=== PATIENT | female | born 1940 | race Caucasian/White ===

== ENCOUNTER → 2016-12-22 | Outpatient (CLI) | payer MEDICARE, BC ==
[~2016-12-22] MED LIST: ASPIRIN E.C. 8181 MG PO; CARVEDILOL; DITROPAN 5MG TAB5 MG; HCTZ; HYDROCODON-ACET15 ML; LISINOPRIL5 MG; NORVASC 10MG10 MG; PRAVASTATIN SOD10 MG; TYLENOL 325MG325 MG; ULTRAM50 M1
== END ==
LOC: RAD 11:11
DX: M54.40 Lumbago with sciatica, unspecified side (principal); G89.29 Other chronic pain; M51.34 Other intervertebral disc degeneration, thoracic region; M43.16 Spondylolisthesis, lumbar region

== ENCOUNTER → 2016-12-31 | Outpatient (CLI) | payer MEDICARE, BC | LOC: MAMMO 09:04 | DX: Z12.31 Encounter for screening mammogram for malignant neoplasm of breast (principal) | CPT/HCPCS: G0202 ==

== ENCOUNTER → 2017-04-17 | Outpatient (CLI) | payer MEDICARE, BC ==
[2015-07-14 18:46] VITALS: BP 173/78
== END ==
LOC: LAB 13:01
DX: I10 Essential (primary) hypertension (principal); R42 Dizziness and giddiness

== ENCOUNTER → 2017-04-27 | Day surgery (SDC) | payer MEDICARE, BC ==
[2015-07-14 18:46] VITALS: BP 173/78
== END ==
LOC: MSO 08:38
DX: R13.10 Dysphagia, unspecified (principal); K44.9 Diaphragmatic hernia without obstruction or gangrene; R63.4 Abnormal weight loss; I10 Essential (primary) hypertension; Z87.891 Personal history of nicotine dependence
CPT/HCPCS: 00740; J7120

== ENCOUNTER → 2017-05-04 | Outpatient (CLI) | payer MEDICARE, BC ==
[2015-07-14 18:46] VITALS: BP 173/78
== END ==
LOC: VAS 15:56
DX: I49.9 Cardiac arrhythmia, unspecified (principal); R42 Dizziness and giddiness; R01.1 Cardiac murmur, unspecified

== ENCOUNTER → 2018-01-05 | Outpatient (CLI) | payer MEDICARE, OTHER ==
[2015-07-14 18:46] VITALS: BP 173/78
== END ==
LOC: MAMMO 10:45
DX: Z12.31 Encounter for screening mammogram for malignant neoplasm of breast (principal)

== ENCOUNTER 2018-02-03 13:06 | Emergency (ER) | payer MEDICARE, OTHER ==
[~2018-02-03] VITALS: Ht 154.9 cm; Wt 50.0 kg
[2018-02-03] MEDS ORDERED: FUROSEMIDE20 MG PO (13:19)
[2018-02-03 15:01] VITALS: BP 154/60
== END 2018-02-03 14:50 | disposition home or self-care (01) ==
LOC: ED 13:06
DX: M25.361 Other instability, right knee (principal); M25.561 Pain in right knee; W01.198A Fall on same level from slipping, tripping and stumbling with subsequent striking against other object, initial encounter; Y92.414 Local residential or business street as the place of occurrence of the external cause; Z96.653 Presence of artificial knee joint, bilateral; Z79.82 Long term (current) use of aspirin

== ENCOUNTER 2018-03-15 10:06 | Emergency (ER) | payer MEDICARE, OTHER ==
[~2018-03-15] VITALS: Ht 154.9 cm; Wt 48.6 kg
[~2018-03-15 10:06] MED LIST changes: +FUROSEMIDE20 MG PO
[2018-03-15 10:51] VITALS: BP 134/71
== END 2018-03-15 10:47 | disposition home or self-care (01) ==
LOC: ED 10:06
DX: S00.212A Abrasion of left eyelid and periocular area, initial encounter (principal); S00.81XA Abrasion of other part of head, initial encounter; W10.9XXA Fall (on) (from) unspecified stairs and steps, initial encounter; Y92.414 Local residential or business street as the place of occurrence of the external cause; Z23 Encounter for immunization
CPT/HCPCS: 90715

== ENCOUNTER → 2018-05-19 | Outpatient (CLI) | payer MEDICARE, OTHER | LOC: RAD 09:42 → MAMMO 10:00 → RAD 10:00 | DX: Z13.820 Encounter for screening for osteoporosis (principal) ==

== ENCOUNTER 2019-06-22 15:00 | Outpatient (RCR) | payer MEDICARE, OTHER | END 2019-06-22 15:30 | disposition still patient (30) | LOC: PT 15:00 | DX: M79.604 Pain in right leg (principal); M79.605 Pain in left leg; R53.1 Weakness ==

== ENCOUNTER → 2020-05-01 | Outpatient (CLI) | payer MEDICARE | LOC: MAMMO 14:27 | DX: Z13.820 Encounter for screening for osteoporosis (principal) ==

== ENCOUNTER → 2022-04-02 | Day surgery (SDC) | payer MEDICARE | END | disposition home or self-care (01) | LOC: MSO 10:20 | DX: H26.492 Other secondary cataract, left eye (principal) | CPT/HCPCS: A9270-GY ==